=== PATIENT | male | born 1980 | race Caucasian/White ===

== ENCOUNTER 2025-04-30 12:28 | Emergency (ER) | payer SELFPAY ==
[2025-04-30 12:31] VITALS: BP 145/95; PULSE 64; TEMP 36.7; O2SAT 96; BMI 38.5
--- NOTE | 2025-04-30 12:58 | XR_ITS ---
WS: [id number] XR finger RT min 2V [id number] REASON FOR EXAM: thumb/trauma FINDINGS: Soft tissue disruption of the end of the thumb. Very small slightly radiopaque foreign bodies in the margin of the soft tissue injury. Nondisplaced fragmentation of the tuft of the distal phalanx of the thumb underlying the soft tissue injury. XR/XR finger RT min 2V 95110 IMPRESSION: Soft tissue injury and fracture as above.
--- NOTE | 2025-04-30 12:59 | ED_ITS ---
HPI - Extremity Injury (Upper) 2 General: Chief Complaint: Extremity Injury, Upper Stated Complaint: finger injry on right hand Time Seen by Provider: 04/30/25 12:46 Source: patient Mode of arrival: ambulatory Limitations: no limitations History of Present Illness: Patient is a 44-year-old male presents to ED today for evaluation of a right thumb injury that he sustained just prior to arrival while at work. Patient states he got the thumb caught in a grinding wheel. He states this is not a Worker's Comp. injury. He is not sure when his last tetanus was. No other injuries or complaints at this time. complaint: injury to: right and finger Onset (ago): hour(s) Other Extremity Injury: Right: fingers (thumb) Other injuries: none Handedness: right Place: home Severity: moderate Relieving factors: none Exacerbating factors: movement of extremity Context: direct blow and laceration Associated symptoms: Reports no associated symptoms Treatments prior to arrival: bandage Related Data Previous Rx's ?Medication ?Instructions ?Recorded cephalexin 500 mg capsule 500 mg PO Q6H 7 days #28 cap s 04/30/25 hydrocodone 5 mg-acetaminophen 325 1 tab PO Q6H PRN pa in #20 tabs 04/30/25 mg tablet Allergies Allergy/AdvReac Type Severity Reaction Status Date / Time No Known Allergies Allergy Verified 04/30/25 12:39 Review of Systems 2 Musc: Reports: extremity pain (R thumb) Skin/Breast: Reports: other (laceration/trauma R thumb) Neuro: Denies: numbness in extremities or sensory changes Physical Exam 2 Const: COMMON NORMALS: no acute distress, no limitations, alert and well nourished GENERAL APPEARANCE: cooperative and anxious Extremity: NARRATIVE EXTREMITY EXAM: GENERAL: Yes normal exam except as noted RIGHT UPPER EXTREMITY: Yes hand & digits (significant trauma to distal R thumb with nail involvement) Right hand and digits: Yes neurovascular exam (normal) and Yes tendon exam (normal) Neuro: COMMON NORMALS: moves all extremities, no focal motor deficits and no sensory deficits noted SENSORIUM/ORIENTATION: Yes alert Skin: NARRATIVE SKIN EXAM: see above Course 2 Consultations: Consultation #1: Dr. Shields-will take to OR tomorrow for debridement/washout/repair Vital Signs: Vital signs: Vital Signs Temperature 98.1 F 04/30/25 12:31 Pulse Rate 64 04/30/25 12:31 Blood Pressure 145/95 04/30/25 12:31 Pulse Oximetry 96 04/30/25 12:31 Oxygen Delivery Me thod Room Air 04/30/25 12:31 MDM - Extremity Injury (Upper) Medical Decision Making Patient here with extensive distal tip injury to his dominant hand/thumb. Bony involvement as well on XR. Tetanus was updated. Given IM Ancef. Dr. Shields will take this to the OR tomorrow for washout/debridement. Outpatient surgery will contact patient to arrange time. Wound was copiously irrigated here and will place bulky dressing. Will give RX for pain meds/abx. Medical Records I reviewed the patient's medical records. 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 Outpatient surgery should contact you to tell you an exact time to arrive tomorrow. Nothing to eat or drink past midnight tonight. Fill your antibiotics and pain medications after your discharge here. Tetanus was updated on today's visit. Print Language: Belarusian Coding Level of Care Code ED Arson And Bomb Investigator for Joel Campos
--- NOTE | 2025-04-30 12:59 | W.ED.EXTPRO ---
HPI - Extremity Problem General: Chief complaint: Extremity Injury, Upper Stated complaint: finger injry on right hand Time Seen by Provider: 04/30/25 12:46 Related Data Allergies Allergy/AdvReac Type Severity Reaction Status Date / Time No Known Allergies Allergy Verified 04/30/25 12:39 Course Vital Signs: Vital signs: Vital Signs Temperature 98.1 F 04/30/25 12:31 Pulse Rate 64 04/30/25 12:31 Blood Pressure 145/95 04/30/25 12:31 Pulse Oximetry 96 04/30/25 12:31 Oxygen Delivery Me thod Room Air 04/30/25 12:31 Discharge Plan Discharge Condition: Stable Referrals: Paul Purcell MD [Primary Care Provider, Family Practice] Print Language: Frisian Coding Level of Care Code ED Weapons Engineer for Joel Campos
[2025-04-30] MEDS: ceFAZolin 1,000 MG in water for injection-sterile 2.5 ML 2.5 MG IM (13:26)
[2025-04-30] MEDS: morphine 4 mg/mL SDV 1 mL IM (13:26)
[2025-04-30] MEDS: tetanus-dipt-pertussis 0.5 mL SDV IM (13:26)
[2025-04-30 14:09] VITALS: BP 136/92; PULSE 60; RESP 16; O2SAT 97
--- NOTE | 2025-04-30 14:46 | ED_ITS ---
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 He had soft tissue loss as well as damage of the nailbed. No bony involvement appears to be evident. Related Data Previous Rx's ?Medication ?Instructions ?Recorded cephalexin 500 mg capsule 500 mg PO Q6H 7 days #28 cap s 04/30/25 hydrocodone 5 mg-acetaminophen 325 1 tab PO Q6H PRN pa in #20 tabs 04/30/25 mg tablet Allergies Allergy/AdvReac Type Severity Reaction Status Date / Time No Known Allergies Allergy Verified 04/30/25 12:39 Physical Exam 2 Narrative: EXAM NARRATIVE: Patient with a snuff grinder and screener injury to the tip of his right thumb. Portion of the nailbed is destroyed, soft tissue is missing primarily over the dorsal distal portion of the right thumb. Does not appear to have any bone involvement. Course Vital Signs: Vital signs: Vital Signs Temperature 98.1 F 04/30/25 12:31 Pulse Rate 60 04/30/25 14:09 Respiratory Rate 16 04/30/25 14:09 Blood Pressure 136/92 04/30/25 14:09 Pulse Oximetry 97 04/30/25 14:09 Oxygen Delivery Me thod Room Air 04/30/25 12:31 MDM - Extremity (Nontraumatic) Medical Decision Making Review of the chart as well as review of photographs of the thumb from the ED were evaluated. Subsequently is felt patient would benefit from irrigation debridement of the wound with closure of the wound. 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 Qualifiers: Encounter type: initial encounter Laterality: right Qualified Code(s): S68.521A - Partial traumatic transphalangeal amputation of right thumb, initial encounter Condition: Stable Prescriptions: New hydrocodone-acetaminophen 5-325 mg tablet 1 tab PO Q6H PRN (Reason: pain) Qty: 20 0RF cephalexin 500 mg capsule 500 mg PO Q6H 7 Days Qty: 28 0RF Discharge Orders: Discharge ED (Routine); Ordered 04/30/25 Ordered By: Ramona Guzman Referrals: Paul Purcell MD [Primary Care Provider, [facility]] Discharge Diet: Advance as tolerated and As Directed Patient Instructions: Opioid Safety, Pain Management Activity Restrictions/Additional Instructions: Leave dressing in place until otherwise instructed by OR staff tomorrow. Outpatient surgery should contact you to tell you an exact time to arrive tomorrow. Nothing to eat or drink past midnight tonight. Fill your antibiotics and pain medications after your discharge here. Tetanus was updated on today's visit. Print Language: Guyanese Coding Level of Care Code ED Clinic Director for Joel Campos
--- NOTE | 2025-04-30 14:52 | P.CONIM_ITS ---
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 He had soft tissue loss damage of the nailbed. He was seen at [facility] ED where the wound was evaluated cleaned and bandaged. Discussion was had with myself via the ED provider both through the medical record as well as through images i.e. pictures of the thumb itself. Review of Systems Musc: Reports: extremity pain (R thumb) Skin/Breast: Reports: other (laceration/trauma R thumb) Neuro: Denies: numbness in extremities or sensory changes Medications/Allergies Home Medications ?Medication ?Instructions ?Recorded ?Confirmed ?Last Taken ?Type cephalexin 500 mg capsule 500 mg PO Q6H 7 days #28 cap s 04/30/25 Unknown Rx hydrocodone 5 mg-acetaminophen 325 1 tab PO Q6H PRN pa in #20 tabs 04/30/25 Unknown Rx mg tablet Allergies Allergy/AdvReac Type Severity Reaction Status Date / Time No Known Allergies Allergy Verified 04/30/25 12:39 Vitals/I&O/Wt Last Vital Signs Temp 98.1 F 04/30/25 12:31 Pulse 60 04/30/25 14:09 Resp 16 04/30/25 14:09 BP 136/92 04/30/25 14:09 Pulse Ox 97 04/30/25 14:09 O2 Del Method Room Air 04/30/25 12:31 Weight last 48 hrs Weight 300 lb Physical Exam Narrative: Patient with a spice grinder injury to the tip of his right thumb. Portion of the nailbed is destroyed, soft tissue is missing primarily over the dorsal distal portion of the right thumb. Does not appear to have any bone involvement. A&P Assessment and plan (1) Fingertip amputation: Partial fingertip amputation the right thumb with nailbed damage Plan Plan at this time is for surgical intervention on 05/01/2025. Irrigation and debridement of the wound as well as repair of all structures. Possible de bridement or resection of distal phalanx. PDMP PDMP Reviewed: Not Reviewed Consult Attestations Medical Necessity Statement: Patient in need of debridement of damaged/partially amputated distal right thumb. Also need of repair of the structures Coding Level of Care Code Acute Code for Chg Fwd Diagnoses Amputation of tip of finger, initial encounter S68.119A Encounter type: initial encounter
== END 2025-04-30 14:08 | disposition home or self-care (01) ==
PROVIDERS: Emergency Provider Physician Assistant; PCP Family Medicine
DX: S68.521A Partial traumatic transphalangeal amputation of right thumb, initial encounter (principal); W27.8XXA Contact with other nonpowered hand tool, initial encounter
CPT/HCPCS: 73140; 90471; 90715; 96372; 99284; 99291; J0690; J2270

== ENCOUNTER 2025-05-01 11:58 | Day surgery (SDC) | payer SELFPAY ==
[2025-05-01] VITALS (9 sets, daily range): BP systolic 119–166; BP diastolic 75–88; PULSE 67–86; RESP 17–18; TEMP 36.3–36.4; O2SAT 93–99; BMI 39.8
[2025-05-01] MEDS: sodium chloride 0.9% 1,000 ML 30 ML IV (13:12)
--- NOTE | 2025-05-01 13:49 | ANES.PREANE2 ---
Pre-Anesthetic Assessment Height/Weight: Height 6 ft 2 in Weight 310 lb O2 Del Method Room Air 05/01/25 12:33 Preop Diagnosis: Nailbed removal Operation Date: 05/01/25 13:50 Proposed Procedures p Irrigation debridememt of right thumb(Right) - Shorty Shields MD s Nail Bed Repair(Right) - Shorty Shields MD Was Beta Marcelino taken within 24 hours: N/A Was Clonidine taken within 24 hours: N/A Last intake: Intake Last Liquid Date 05/01/25 Last Liquid Time 10:30 Last Solid Date 04/30/25 Last Solid Time 16:30 Social No alcohol and No tobacco Exam alert, oriented x 3, clear to auscultation bilaterally and regular rate & rhythm Airway Submandibular: within normal limits Cervical ROM: within normal limits Mallampati: Class III Dentition: full Anesthetic Plan ASA status: 3 Anesthesia: Choice Other: No prior issues with anesthesia N.p.o. since this morning at 1030, patient had a Sprite Denies any cardiac issues SERGEY, occasional CPAP usage METs greater than 4 Medications/Allergies Home Medications ?Medication ?Instructions ?Recorded ?Confirmed ?Last Taken ?Type cephalexin 500 mg capsule 500 mg PO Q6H 7 days #28 caps 04/30/25 04/30/25 04/30/25 Rx hydrocodone 5 mg-acetaminophen 325 1 tab PO Q6H PRN pain #20 tabs 04/30/25 04/30/25 Unknown Rx mg tablet sertraline 50 mg tablet 50 mg PO DAILY 05/01/25 05/01/25 04/30/25 History Allergies Allergy/AdvReac Type Severity Reaction Status Date / Time No Known Allergies Allergy Verified 05/01/25 12:26 Current Medications Generic Name Dose Route Start Last Admin Trade Name Freq PRN Reason Stop Dose Admin Sodium Chloride 1,000 mls @ 30 mls/hr 05/01/25 13:15 05/01/25 13:12 Sodium Chloride 0.9% IV 30 mls/hr .Q24H ISRA Administration
[2025-05-01] MEDS: fentaNYL 50 mcg/mL INJ 2mL IVP (14:22)
--- NOTE | 2025-05-01 14:25 | W.PM.OPSUD ---
Surgery/Procedure H&P Update DATE OF PROCEDURE: May 01, 2025 DATE H&P PERFORMED: 04/30/25 H&P UPDATE INFORMATION: I have reviewed H&P completed within last 30 days, I have examined patient prior to procedure and No changes to prior documentation PREOP DIAGNOSIS: Nailbed removal, distal right thumb tip amputation via napper grinder PLANNED PROCEDURE: Operation Date: 05/01/25 13:50 Proposed Procedures p Irrigation debridememt of right thumb(Right) - Shorty Shields MD s Nail Bed Repair(Right) - Shorty Shields MD
[2025-05-01] MEDS: famotidine 20 mg/2 mL INJ IVP (14:28)
[2025-05-01] MEDS: ceFAZolin 3,000 MG in sodium chloride 0.9% (plus) 100 ML 200 MG IV (14:53)
[2025-05-01] MEDS: BUPivacaine 0.5% INJ 30 mL INJECTION (15:24)
--- NOTE | 2025-05-01 16:07 | P.OP_ITS ---
Operative Report Date of procedure: May 01, 2025 Surgeon: Shorty Shields MD Procedure: Preoperative diagnosis: Right distal thumb soft tissue amputation Postoperative diagnosis: Same Procedure: Irrigation debridement of the injured right thumb with repair of soft tissue injury. Surgeon: Shorty Shields MD Anesthesia: IV sedation with digital block EBL: None Indications: Shorty is a 44-year-old white male who yesterday was working with a tooth grinder and caught the tip of his right thumb on it. He was seen in [facility]'s ER where is noted that he had loss most of his distal nailbed and soft tissue lacerations around the distal end of his thumb. ER staff contacted myself and I reviewed the chart as well as photographs of the thumb. ER staff washed out the wound well and dressed it. Patient was scheduled for surgical irrigation debridement the following day. Once in preop holding area met the patient and discussed his injury and plan for surgical debridement with repair of all structures. He been told that he may lose part of the distal phalanx and that he will have a smaller nail and nailbed in the future. All risk benefits treatment alternatives were discussed with him and he is agreeable to this at this time. Procedure: After obtaining consent patient taken to the operating room placed on the operative table supine position IV sedation was administered. Right arm was placed out on a hand table. Right upper extremities prepped and draped usual fashion. After surgical timeout digital block was administered by myself using half percent Marcaine at the base of the right thumb. Once good anesthesia was achieved a Heidi drain was used as a tourniquet this is wrapped around the thumb base and pulled tight and held with a hemostat. At this point into the finger i.e. open wound was washed with copious amounts of sterile irrigation. Nonviable tissue was sharply debrided with a #15 blade. Debulking of the finger fat pad was also done. Soft tissues were also raised off the dorsal aspect of the distal phalanx i.e. nailbed. This is kept intact. A small portion i.e. 2 mm of distal phalanx were removed with rongeur to help with coverage of the distal end of the finger. Subsequently, in a stepwise fashion edges of the soft tissue flap were brought back up to the proximal portion of the wounds on either side and then work towards the central portion. These were sutured down with 3- 0 Vicryl interrupted sutures. Once to the distal dorsal portion of the laceration these were sewn and through the flap and actually through the nailbed and through the nail to anchor it well in the distal tip. Sutures were thrown until adequate laying down on the soft tissues have been achieved. Excess tissue was resected with #15 blade. Once cleaned and dried. Xeroform gauze was placed over the distal tip. Sterile gauze pad was placed over this. Tube gauze was then placed over the thumb and secured to his wrist. Patient was then awakened transferred to cover room stable condition
== END 2025-05-01 17:14 | disposition home or self-care (01) ==
PROVIDERS: PCP Family Medicine; Visit Provider Orthopaedic Surgery
PROC: (CPT 26236; principal; 2025-05-01 13:40)
PROC: (CPT 11760; 2025-05-01 13:40)
DX: S68.021A Partial traumatic metacarpophalangeal amputation of right thumb, initial encounter (principal); W29.8XXA Contact with other powered hand tools and household machinery, initial encounter; G47.33 Obstructive sleep apnea (adult) (pediatric)
CPT/HCPCS: 26236; J0330; J0690; J1100; J2250; J2405; J2704; J3010; J3490; J7030